=== PATIENT | female | born 1990 | race Two or more races ===

== ENCOUNTER 2023-11-22 14:19 | Emergency (ER) | payer MEDICAID, SELFPAY ==
--- NOTE | ~2023-11-22 | XR_ITS ---
EXAMINATION: XR CHEST CLINICAL INFORMATION: Cough. Fever. COMPARISON: None available. TECHNIQUE: Frontal view of the chest was obtained. FINDINGS: Heart size is normal. No consolidation. Pleural spaces are clear. No pneumothorax. No acute osseous abnormality. There are spinal stabilization rods overlying the thoracic spine. XR/XR chest 1V IMPRESSION: No acute cardiopulmonary disease.
[2023-11-22 14:29] VITALS: BP 118/68; PULSE 108; O2SAT 94
[2023-11-22 14:39] VITALS: BP 117/73; PULSE 98; RESP 18; TEMP 36.3; O2SAT 96; BMI 41.3
--- NOTE | 2023-11-22 15:09 | ED_ITS ---
HPI - URI/Sore Throat General Chief Complaint: Upper Respiratory Symptoms Stated Complaint: CHEST TIGHTNESS, L ARM TINGLING, DIZZINESS Time Seen by Provider: 11/22/23 14:38 Source: patient Mode of arrival: EMS Limitations: other (poor historian) History of Present Illness ED Provider: ANTONIA JIN Narrative: 33 yo female with PMH of bipolar, schizoaffective, asthma, bronchitis, pneumonia who has been at [facility] for 3 weeks for SI attempt notes for the past week the patient has had cough, urinary frequency and kidney pain, her left arm tingles and hurts because when she last had lab work weeks ago the woman did it wrong. MD elicited complaint: cough, rhinorrhea and other (body aches) Pertinent past history: pneumonia Onset (ago): week(s) (1) Consistency: constant Severity: moderate Description of mucous: clear Able to tolerate fluids by mouth: Yes Exacerbating factors: other (cough) Relieving factors: nothing Context: sick contacts Associated symptoms: chills, rhinorrhea, nasal congestion, cough, nausea and other (left arm tingling for weeks at the hand reportedly after a blood draw) Treatments prior to arrival: acetaminophen Related Data Allergies Allergy/AdvReac Type Severity Reaction Status Date / Time No Known Allergies Allergy Verified 11/22/23 14:43 Review of Systems Review of Systems: Constitutional : positive Fever, positive Chills, positive fatigue, positive Malaise ENT/Mouth : positive sore throat, positive runny nose Eyes: No Discharge, no change in vision Cardiovascular : No Chest Pain, No SOB Respiratory : pos Cough, No Sputum Gastrointestinal : pos Nausea, No Vomiting, No Diarrhea Genitourinary : pos Dysuria, No Urinary Frequency Musculoskeletal : positive Myalgia, pos back pain Skin : No rash, no skin lesions Neuro : No Headache, no weakness, pos parasthesias All other systems reviewed and are negative [facility] Past Medical History Attestation statement: The following information was validated with the patient. Source: old records reviewed Medical History Asthma Bipolar 1 disorder Schizoaffective disorder Social History Social History (Updated 11/22/23 @ 15:25 by Candie Hernandez DO) Patient Tobacco Use Status: Current everyday Tobacco user Physical Exam Vital Signs: Vital Signs: Last Vital Signs Temp 97.3 F 11/22/23 14:39 Pulse 98 11/22/23 14:39 Resp 18 11/22/23 14:39 BP 117/73 11/22/23 14:39 Pulse Ox 96 11/22/23 14:39 O2 Del Method Room Air 11/22/23 14:39 BMI result Body Mass Index 41.3 Appearance: Alert. Oriented X3. No acute distress. intermittent forceful coughing on exam but no sputum no vomiting Eyes: Pupils equal, round and reactive to light. ENT: Pharynx normal. Neck: Normal inspection. Neck supple. CVS: Normal heart rate and rhythm. Pulses normal. Respiratory: No respiratory distress. Breath sounds normal. Abdomen: Soft and nontender. Skin: Skin warm and dry. Normal skin color. Normal skin turgor. Extremities: No lower extremity edema. No calf ttp Neuro: Oriented X 3. No motor deficit. No sensory deficit. normal movement of L hand SILT intact 2+ radial pulse Course Course Course Narrative: called and message left at 326pm for Aimee Faustin who is listed as guardian Reevaluation(s) Reevaluation #1: signed out to Dr. Mendiola pending workup Medical Decision Making Medical Decision Making MDM Narrative: 33 yo female with PMH of bipolar, schizoaffective, asthma, bronchitis, pneumonia here with URI symptoms, dysuria and back pain at this time she is not the best historian will obtain basic labs, CXR, viral panel, strep swab - oral motrin ordered. She has no hypoxia or resp distress. EKG ordered but no pain other than with cough low susp for VTE or ACS. She has movement in L hand and is NV intact doubt stroke or neurological issue Differential Diagnosis Differential Diagnoses: The differential diagnosis associated with the presentation includes viral syndrome, pneumonia, bronchitis, UTI, dehydration Admission/Observation Consideration of admission/observation: Escalation of care including admission/observation considered Lab Data [facility] Lab Attestation statement: I reviewed the patient's lab results. Independent Interpretation I performed an independent interpretation of an: Plain X-Ray (normal ) Radiology Impression Discussion of test interpretation with radiology: I have reviewed the radiologist's reading. Independent Historian Clinical information obtained from an independent historian. History obtained from or confirmed by: EMS External Record Review External record reviewed: Outpatient record Discharge Plan Discharge Clinical Impression: Upper respiratory infection Qualifiers: URI type: unspecified URI Qualified Code(s): J06.9 - Acute upper respiratory infection, unspecified Patient Disposition: Still a Patient Print Language: Russian
--- NOTE | 2023-11-22 15:32 | ECG_ITS ---
Test Reason : PAIN Blood Pressure : / mmHG Vent. Rate : 113 BPM Atrial Rate : 113 BPM P-R Int : 116 ms QRS Dur : 092 ms QT Int : 362 ms P-R-T Axes : 033 000 -04 degrees QTc Int : 496 ms Sinus tachycardia Incomplete right bundle branch block Nonspecific T wave abnormality Abnormal ECG No previous ECGs available Referred By: Candie Hernandez Electronically Signed By:Kennedy Samuels
[2023-11-22] MEDS: Ibuprofen 400 MG TABLET PO (16:12)
[2023-11-22] MEDS: Ondansetron ODT 4 MG TAB.RAPDIS TRANSLINGU (16:13)
[2023-11-22 17:10] LABS: MANUAL DIFF FLAG NO
[2023-11-22 17:21] LABS: IDNOW Serial# 08D9AD1C; Strep A Nucleic Acid Negative (Negative)
[2023-11-22 17:31] LABS: Alanine Aminotransferase 10 U/L (0-31); Albumin Level 3.9 g/dL (3.5-5.0); Alkaline Phosphatase 62 U/L (39-117); Anion Gap 14 (12-20); Aspartate Amino Transferase 15 U/L (5-31); Bilirubin Direct 0.1 mg/dL (0.0-0.5); Bilirubin Total 0.3 mg/dL (0.0-1.0); Blood Urea Nitrogen 9 mg/dL (9-16); Calcium 9.8 mg/dL (8.4-10.2); Carbon Dioxide 26 mmol/L (22-29); Chloride 99 mmol/L (96-108); Creatinine Clr Calc Pharmacy 112.5; Estimated Glomerular Filt Rate > 60; Glucose Random 102 mg/dL (60-115); Magnesium 1.6 mg/dL (1.6-2.6); Potassium 4.5 mmol/L (3.3-5.1); Sodium 134 mmol/L (135-145); Total Protein 7.3 g/dL (6.5-8.0)
[2023-11-22 17:33] LABS: Basophils Percent Auto 0.2 % (0-2); Hematocrit 40.6 % (37.0-47.0); Hemoglobin 12.8 g/dl (12.0-16.0); Lymphocytes Absolute Auto 1.4 X10*3/uL (1.2-4.9); Lymphocytes Percent Auto 13.8 % (20-40); Mean Corpuscular HGB Conc 31.5 g/dl (31.0-35.0); Mean Corpuscular Hemoglobin 28.3 pg (27.0-33.0); Mean Corpuscular Volume 89.6 fL (80.0-98.0); Mean Platelet Volume 11.2 fL (9.4-12.3); Monocytes Absolute Auto 0.8 X10*3/uL (0.1-1.2); Monocytes Percent Auto 8.1 % (2-11); NRBC Pct Auto 0.4 /100WBC (0.0-0.2); Neutrophils Absolute Auto 7.7 x10*3/uL (2.0-8.3); Neutrophils Percent Auto 76.9 % (45-73); Platelet Count 153 X10*3/uL (160-400); Red Blood Count 4.53 X10*6/uL (4.20-5.50); Red Cell Distribution Width 13.9 % (11.0-16.0)
[2023-11-22 17:35] LABS: Appearance Urine Clear; Color Urine Yellow; Glucose Urine UA Negative (Negative); Leukocyte Esterase Urine Negative (Negative); Nitrite Urine Negative (Negative); PH 7.5 (5.0-9.0); Specific Gravity - Urine <= 1.005 (1.005-1.025); UMIC TRIGGER UACC YES; Urine Blood Small (1+) (Negative); Urine Ketones Negative (Negative); Urine Protein Negative (Neg-Trace)
[2023-11-22 17:52] LABS: Influenza A PCR NEGATIVE (Negative); Influenza B PCR NEGATIVE (Negative); Resp Syncy Virus RNA Qual PCR NEGATIVE (Negative); SARS COV2 PCR INHOUSE POSITIVE (Negative)
[2023-11-22 17:56] LABS: Bacteria Urine None Seen (None Seen); Hyaline Casts Urine 0-2 /LPF (0-2); Squamous Epithelial Cell Urine 0-2 /HPF (0-2); WBC Urine 0-5 /HPF (0-5)
--- NOTE | 2023-11-22 18:33 | MHC.EDTECH ---
pt changed over and placed into room 2, belongings list was done and pt was given food and blankets. Pt did not need to change into hospital gown as she was already dressed in one
--- NOTE | 2023-11-22 19:01 | PC.NURSE ---
patient appears to remain at rest at present respirations are even and unlabored patient appears in no distress.
--- NOTE | 2023-11-22 20:53 | PC.NURSE ---
called house father number and [address] [place] [address] phone number [phone] to attempt to return patient, no answer.
== END 2023-11-22 23:42 | disposition other institution (70) ==
PROVIDERS: Emergency Medicine; Emergency Provider Emergency Medicine
DX: U07.1 COVID-19 (principal); J06.9 Acute upper respiratory infection, unspecified; R35.0 Frequency of micturition; F25.0 Schizoaffective disorder, bipolar type; F17.210 Nicotine dependence, cigarettes, uncomplicated; J45.909 Unspecified asthma, uncomplicated
CPT/HCPCS: 0241U; 71045; 80048; 80076; 81001; 83735; 85025; 87651; 93005; 99283; 99284

== ENCOUNTER → 2023-11-22 15:32 | Outpatient (BNV) | payer MEDICAID, SELFPAY | PROVIDERS: Emergency Provider Emergency Medicine; Visit Provider Internal Medicine Cardiovascular Disease | DX: R94.31 Abnormal electrocardiogram [ECG] [EKG] (principal) | CPT/HCPCS: 93010 ==

== ENCOUNTER 2023-11-24 09:35 | Inpatient (IN) | payer OTHER, SELFPAY ==
[2023-11-24] VITALS (8 sets, daily range): BP systolic 100–112; BP diastolic 50–68; PULSE 73–102; RESP 17–22; TEMP 36.5–36.6; O2SAT 89–99; BMI 40.8
--- NOTE | ~2023-11-24 | XR_ITS ---
EXAMINATION: XR CHEST CLINICAL INFORMATION: Shortness of breath COMPARISON: 11/22/2023 TECHNIQUE: Frontal view of the chest was obtained. FINDINGS: Lungs are clear cardiomediastinal silhouette is normal. [place] dhruv seen in the thoracic and lumbar spine. XR/XR chest 1V IMPRESSION: No active cardiopulmonary disease
--- NOTE | 2023-11-24 09:52 | ED.GENADULT ---
HPI - General Adult General Chief complaint: General Medical Stated complaint: +COVID FROM [facility], UNABLE TO OFFER O2 PER EMS Time Seen by Provider: 11/24/23 09:47 History of Present Illness HPI narrative: Patient is 33 years old has a history of psychiatric illness. Was at [facility]. Tested positive for COVID 2 days ago. Presents today with having increasing coughing generalized malaise weakness. Patient's oxygenation dropped to the 80s. Also had a low blood pressure reading of 64/49. EMS was called patient was sent to the ED positive coughing upper respiratory symptoms generalized malaise. Positive history of bipolar. Positive history of schizoaffective disorder Related Data Previous Rx's ?Medication ?Instructions ?Recorded acetaminophen 500 mg tablet 500 mg PO Q6H PRN fever or pain 11/22/23 #14 tabs ibuprofen 600 mg tablet 600 mg PO TID PRN fever or pain 11/22/23 #14 tabs Allergies Allergy/AdvReac Type Severity Reaction Status Date / Time No Known Allergies Allergy Verified 11/24/23 09:45 Review of Systems Review of Systems: Positive coughing congestion upper respiratory symptoms positive generalized malaise Yes all other systems are reviewed and are negative [facility] Past Medical History Attestation statement: The following information was validated with the patient. Medical History Asthma Bipolar 1 disorder Schizoaffective disorder Social History Social History Patient Tobacco Use Status: Current everyday Tobacco user Advance Directives: No Do you have a plan to hurt others: No Plan Physical Exam ED Vital Signs: Vital Signs - 24 hr 11/24/23 09:42 11/24/23 09:52 11/24/23 11:40 Temperature 97.9 F 97.9 F Pulse Rate 89 90 82 Respiratory Rate 20 22 H 17 Blood Pressure 100/50 L 100/50 L 104/62 Pulse Oximetry 92 94 98 Oxygen Delivery Method Room Air Nasal Cannula Room Air Oxygen Flow Rate 1 11/24/23 12:19 11/24/23 12:24 Temperature Pulse Rate 89 Respiratory Rate 22 H Blood Pressure Pulse Oximetry 95 89 L Oxygen Delivery Method Room Air Oxygen Flow Rate BMI result Body Mass Index 40.8 Appearance: Alert. Oriented X3. No acute distress. Eyes: Pupils equal, round and reactive to light. ENT: Pharynx normal. Neck: Normal inspection. Neck supple. No lymph nodes noted. No crepitus CVS: Normal heart rate and rhythm. Pulses normal. Normal S1 and S2 Respiratory: No respiratory distress. Breath sounds normal. No Wheezing. No rales Abdomen: Soft and nontender. No rigidity. No distention. good BS x4 Skin: Skin warm and dry. Normal skin color. Normal skin turgor. Extremities: No lower extremity edema. Neurovascular intact to all extremities. No Lacerations. No Rash Neuro: Oriented X 3. No motor deficit. No sensory deficit. Moving all extermities. No slurred speech Medications Administered Discontinued Medications Generic Name Dose Route Start Last Admin Trade Name Freq PRN Reason Stop Dose Admin Sodium Chloride 1,000 mls @ 999 mls/hr 11/24/23 10:00 11/24/23 11:38 Ns IV 11/24/23 11:00 Infused .Q1H1M JANEEN Infusion Sodium Chloride 1,000 mls @ 999 mls/hr 11/24/23 10:00 11/24/23 13:03 Ns IV 11/24/23 11:00 Not Given .Q1H1M JANEEN Medical Decision Making Medical Decision Making [facility] Narrative: Patient is 33 years old presents today with having tested positive for COVID 2 days prior. Been having some coughing generalized malaise. Patient's O2 sat desats into the 80s. Has a low blood pressure EMS was called. IV fluid was given. Patient's lactate was 1.2 there is no evidence for severe sepsis. Influenza and RSV are negative COVID is positive. My interpretation patient's chest x-ray was negative for any acute evidence of pneumonia. No pneumothorax. Ambulated patient in the ED after IV fluids. O2 sat dropped into the 80s. A dose of Decadron in started for treatment of COVID. Will admit patient for further evaluation. Differential Diagnosis Differential Diagnoses: The differential diagnosis associated with the presentation includes COVID, pneumonia, COPD, asthma, PE, pneumothorax Admission/Observation Consideration of admission/observation: Escalation of care including admission/observation considered Lab Data [facility] Lab Attestation statement: I reviewed the patient's lab results. 11/24/23 10:18 11/24/23 10:18 Labs: Lab Results 11/24/23 Range/Units 10:18 WBC 8.3 (4.8-10.8) X10*3/uL RBC 4.51 (4.20-5.50) X10*6/uL Hgb 12.8 (12.0-16.0) g/dl Hct 40.5 (37.0-47.0) % MCV 89.8 (80.0-98.0) fL MCH 28.4 (27.0-33.0) pg MCHC 31.6 (31.0-35.0) g/dl RDW 13.9 (11.0-16.0) % Plt Count 165 (160-400) X10*3/uL MPV 10.9 (9.4-12.3) fL Immature Gran % (Auto) 2.1 H (0.0-0.4) % Neut % (Auto) 66.7 (45-73) % Lymph % (Auto) 21.7 (20-40) % [place] % (Auto) 8.7 (2-11) % Eos % (Auto) 0.4 (0-4) % Baso % (Auto) 0.4 (0-2) % Lymph # (Auto) 1.8 (1.2-4.9) X10*3/uL [place] # (Auto) 0.7 (0.1-1.2) X10*3/uL Eos # (Auto) 0.0 (0.0-0.4) X10*3/uL Baso # (Auto) 0.0 (0.0-0.2) X10*3/uL Abs Immat Gran (auto) 0.17 H (0.00-0.03) X10*3/uL Absolute Neuts (auto) 5.5 (2.0-8.3) x10*3/uL Absolute Nucleated RBC 0.000 (0.0-0.012) X10*3/uL Nucleated RBC % (auto) 0.0 (0.0-0.2) /100WBC Sodium 139 (135-145) mmol/L Potassium 4.4 (3.3-5.1) mmol/L Chloride 100 (96-108) mmol/L Carbon Dioxide 29 (22-29) mmol/L Anion Gap 14 (12-20) BUN 14 (9-16) mg/dL Creatinine 0.67 (0.5-1.4) mg/dL Estim Creat Clear Calc 110.2 Estimated GFR > 60 Random Glucose 121 H (60-115) mg/dL Lactic Acid 1.2 (0.5-2.0) mmol/L Calcium 10.0 (8.4-10.2) mg/dL Influenza Type A (PCR) NEGATIVE (Negative) Influenza Type B (PCR) NEGATIVE (Negative) RSV RNA Qual (PCR) NEGATIVE (Negative) SARS-CoV-2 RNA (RT-PCR) POSITIVE A (Negative) Independent Interpretation I performed an independent interpretation of an: Plain X-Ray (Chest x-ray negative for any acute infiltrate) Radiology Impression Discussion of test interpretation with radiology: I have reviewed the radiologist's reading. Independent Historian Clinical information obtained from an independent historian. History obtained from or confirmed by: Spouse External Record Review External record reviewed: Outpatient record Chronic Conditions Patient?s care impacted by: Other (Schizoaffective disorder) Discharge Plan Discharge Clinical Impression: COVID-19 Patient Disposition: Admitted As Inpatient Prescriptions: No Action acetaminophen 500 mg tablet 500 mg PO Q6H PRN (Reason: fever or pain) Qty: 14 0RF ibuprofen 600 mg tablet 600 mg PO TID PRN (Reason: fever or pain) Qty: 14 0RF Print Language: Rwandan
--- NOTE | 2023-11-24 10:07 | ECG_ITS ---
Test Reason : SOB Blood Pressure : / mmHG Vent. Rate : 084 BPM Atrial Rate : 084 BPM P-R Int : 138 ms QRS Dur : 102 ms QT Int : 376 ms P-R-T Axes : 026 004 -07 degrees QTc Int : 444 ms Normal sinus rhythm Incomplete right bundle branch block Nonspecific T wave abnormality Abnormal ECG When compared with ECG of 22-NOV-2023 16:25, No significant change was found Referred By: Charlette Jefferson Electronically Signed By:Kennedy Samuels
[2023-11-24 10:27] LABS: MANUAL DIFF FLAG NO
[2023-11-24 10:31] LABS: Basophils Percent Auto 0.4 % (0-2); Eosinophils Percent Auto 0.4 % (0-4); Hematocrit 40.5 % (37.0-47.0); Hemoglobin 12.8 g/dl (12.0-16.0); Imm Gran Abs Auto 0.17 X10*3/uL (0.00-0.03); Imm Gran Pct Auto 2.1 % (0.0-0.4); Lymphocytes Absolute Auto 1.8 X10*3/uL (1.2-4.9); Lymphocytes Percent Auto 21.7 % (20-40); Mean Corpuscular HGB Conc 31.6 g/dl (31.0-35.0); Mean Corpuscular Hemoglobin 28.4 pg (27.0-33.0); Mean Corpuscular Volume 89.8 fL (80.0-98.0); Mean Platelet Volume 10.9 fL (9.4-12.3); Monocytes Absolute Auto 0.7 X10*3/uL (0.1-1.2); Monocytes Percent Auto 8.7 % (2-11); Neutrophils Absolute Auto 5.5 x10*3/uL (2.0-8.3); Neutrophils Percent Auto 66.7 % (45-73); Platelet Count 165 X10*3/uL (160-400); Red Blood Count 4.51 X10*6/uL (4.20-5.50); Red Cell Distribution Width 13.9 % (11.0-16.0); White Blood Count 8.3 X10*3/uL (4.8-10.8)
[2023-11-24] MEDS: 0.9 % Sodium Chloride 1,000 ML 999 ML IV (10:38)
[2023-11-24 10:41] LABS: Lactic Acid 1.2 mmol/L (0.5-2.0)
[2023-11-24 10:52] LABS: Anion Gap 14 (12-20); Blood Urea Nitrogen 14 mg/dL (9-16); Carbon Dioxide 29 mmol/L (22-29); Chloride 100 mmol/L (96-108); Creatinine Clr Calc Pharmacy 110.2; Estimated Glomerular Filt Rate > 60; Glucose Random 121 mg/dL (60-115); Potassium 4.4 mmol/L (3.3-5.1); Sodium 139 mmol/L (135-145)
[2023-11-24 11:38] LABS: Influenza A PCR NEGATIVE (Negative); Influenza B PCR NEGATIVE (Negative); Resp Syncy Virus RNA Qual PCR NEGATIVE (Negative); SARS COV2 PCR INHOUSE POSITIVE (Negative)
--- NOTE | 2023-11-24 13:16 | PC.NURSE ---
pt oob without assistance for ambulatory pulse oximetry, pt maintained SpO2 of 94-96%. pt was able to ambulate approx 25ft before complaining of dizziness. although pt was dizzy, her Sp02 was maintained. For safety, pt was wheeled back into exam room. upon returning pt to bed, pt desatted to 89% on RA- pt was placed back on supplemental O2 at 1L via NC. MD Jefferson notified, plan is admit pt to medicine service.
--- NOTE | 2023-11-24 13:32 | PM.IMHP ---
History of Present Illness Date of Service: 11/24/23 Attending physician on admission: Howie Easton Chief Complaint: cough, sob, low oxygen This is a 33 year old female with history of schizoaffective disorder, bipolar disorder admitted to [facility] for management of suicidal ideation with a plan and aggressive behavior who was sent to the emergency department with shortness of breath. She was initially evaluated in the emergency department on November 21 for cough and tested positive for COVID-19. At that time chest x-ray was unremarkable and her oxygen saturations were in the mid 90s on room air. She returned back to [facility]. Today her oxygen saturation was noted to drop into the 80s and for that reason she was sent to the emergency department for evaluation. [facility] is unable to accommodate supplemental oxygen at their facility. In the emergency department she was afebrile, workup was unremarkable. Repeat chest x-ray shows no acute changes. Oxygen saturation noted to drop to 89% on room air. Due to hypoxia she will be admitted for further management of respiratory failure. Patient herself is a poor historian and is difficult to get a accurate history from her. Review of Systems Review of Systems: Yes all other systems are reviewed and are negative Constitutional: Constitutional: Denies chills and Denies fever(s) [facility] Medical History (Updated 11/24/23 @ 13:35 by AMANDA Burton) HLD (hyperlipidemia) HTN (hypertension) Asthma Bipolar 1 disorder Schizoaffective disorder Social History Patient Tobacco Use Status: Current everyday Tobacco user Advance Directives: No Do you have a plan to hurt others: No Plan Meds Allergies Allergy/AdvReac Type Severity Reaction Status Date / Time No Known Allergies Allergy Verified 11/24/23 09:45 Active Medications: Current Medications Acetaminophen (Acetaminophen 325 Mg Tablet) 650 mg PO Q6H PRN PRN Reason: Pain, Mild (Pain Scale 1-3), fever or headache Albuterol Sulfate (Albuterol Sulfate (0.083%) 2.5 Mg/3 Ml Vial.Neb) 2.5 mg INHALE Q6H PRN PRN Reason: Shortness of Breath/Wheezing Benzonatate (Benzonatate 100 Mg Capsule) 100 mg PO TID PRN PRN Reason: Cough Calcium Carbonate (Calcium Carbonate 750 Mg Tab.Chew) 750 mg PO Q4H PRN PRN Reason: Heartburn Dexamethasone (Dexamethasone 6 Mg Tablet) 6 mg PO DAILY [facility] Enoxaparin Sodium (Enoxaparin Sodium 40 Mg/0.4 Ml Syringe) 40 mg SUBCUT Q24H [facility] Glucose (Glucose Gel 15 Gm Gel..Gram.) 15 gm PO Q15M PRN; Protocol PRN Reason: per Hypoglycemia Standing Ord. Guaifenesin/Dextromethorphan (Guaifenesin Dm 100/10/5 Ml 5 Ml Syrup) 5 ml PO Q6H PRN PRN Reason: Cough Dextrose (D10) 250 mls @ 750 mls/hr IV Q15M PRN; Protocol PRN Reason: per Hypoglycemia Standing Ord. Insulin Human Lispro (Insulin Lispro 100 Unit/Ml 3 Ml Vial) 0 unit SUBCUT QIDACHS [facility]; Protocol Magnesium Hydroxide (Milk Of Magnesia 30 Ml Oral.Susp) 30 ml PO DAILY PRN PRN Reason: Constipation Melatonin (Melatonin 3 Mg Tablet) 6 mg PO BEDTIME PRN PRN Reason: Insomnia Sodium Chloride (0.9 % Sodium Chloride Flush 3 Ml Syringe) 3 ml IVFLUSH QSHIFT [facility] Physical Exam Vital Signs and Narrative: Vital Signs: Last Vital Signs Temp 97.9 F 11/24/23 09:52 Pulse 89 11/24/23 12:24 Resp 22 H 11/24/23 12:24 BP 104/62 11/24/23 11:40 Pulse Ox 89 L 11/24/23 12:24 O2 Del Method Room Air 11/24/23 12:24 O2 Flow Rate 1 11/24/23 09:52 BMI result Body Mass Index 40.8 Const: General: cooperative, comfortable, no acute distress, alert and awake Nutritional Appearance: obese Orientation/consciousness: patient oriented x3 Resp: Effort & Inspection: normal respiratory effort, able to speak in complete sentences, Actively coughing, no respiratory distress and no use of accessory muscles Cardio: Rate: regular rate GI: Inspection: No distended and Yes obesity Palpation (GI): Soft to palpation and nontender Neuro: General: patient oriented x3 and moves all extremities Results Labs 11/24/23 10:18 11/24/23 10:18 Labs: Laboratory Results - last 24 hr 11/24/23 10:18 MCV 89.8 MCH 28.4 MCHC 31.6 RDW 13.9 Plt Count 165 MPV 10.9 Immature Gran % (Auto) 2.1 H Neut % (Auto) 66.7 Lymph % (Auto) 21.7 [place] % (Auto) 8.7 Eos % (Auto) 0.4 Baso % (Auto) 0.4 Lymph # (Auto) 1.8 [place] # (Auto) 0.7 Eos # (Auto) 0.0 Baso # (Auto) 0.0 Abs Immat Gran (auto) 0.17 H Absolute Neuts (auto) 5.5 Absolute Nucleated RBC 0.000 Nucleated RBC % (auto) 0.0 Anion Gap 14 Estim Creat Clear Calc 110.2 Estimated GFR > 60 Random Glucose 121 H Lactic Acid 1.2 Calcium 10.0 Influenza Type A (PCR) NEGATIVE Influenza Type B (PCR) NEGATIVE RSV RNA Qual (PCR) NEGATIVE SARS-CoV-2 RNA (RT-PCR) POSITIVE A Imaging Radiologist's Impressions: Impressions Chest X-Ray 11/24/23 10:20 IMPRESSION: No active cardiopulmonary disease Assessment and Plan (1) COVID-19: Status: Acute Plan This is a 33 year old female with history of schizoaffective disorder, bipolar disorder admitted to [facility] for management of suicidal ideation with a plan and aggressive behavior who tested positive for covid 19 on 11/21 and was sent to the emergency department with hypoxia Acute respiratory failure secondary to COVID-19 infection Chest x-ray negative Symptoms ongoing for over a week no indication for antiviral therapy Due to hypoxia will be treated with steroids Symptomatic support with breathing treatments and cough suppressants Supplemental oxygen as needed, wean as tolerated Prediabetes hold metformin follow blood sugar Mood From [facility] where she was being treated for suicidal ideation Continue 1:1 for safety will need care team evaluation prior to discharge Continue baseline meds Morbid obesity BMI 40.8 Likely contributing to respiratory symptoms Weight loss encouraged Medication reconciliation is pending at the time of admission. We will continue medication for hypertension, hyperlipidemia etcetera when med rec has been completed DVT prophylaxis-Lovenox Code status-full code Quality Stroke Does the patient have a stroke diagnosis?: No VTE Prior VTE?: No VTE Risk Level:: Medical - moderate - high VTE Device Contraindication: N/A - Device Ordered VTE Drug Contraindication: N/A - Med Ordered
[2023-11-24] MEDS: dexAMETHasone sod phosphate 10 MG/ML VIAL IVPUSH (13:55)
[2023-11-24] MEDS: Enoxaparin Sodium 40 MG/0.4 ML SYRINGE SUBCUT (13:55)
--- NOTE | 2023-11-24 13:57 | PC.NURSE ---
pt noted to be snoring loudly- pt SpO2 varying from 87-90% on 1L via NC- upon waking pt 99% on 1L via NC
--- NOTE | 2023-11-24 14:33 | PHA.MEDREC ---
Pharmacy Consult ? Medication Reconciliation Pharmacy has completed the medication reconciliation. Faxed med list.
[2023-11-24] MEDS: 0.9 % Sodium Chloride Flush 3 ML SYRINGE IVFLUSH (18:24)
[2023-11-24 18:42] LABS: Glucose, Whole Blood 175 mg/dL (60-115)
[2023-11-24 21:09] LABS: Glucose, Whole Blood 154 mg/dL (60-115)
[2023-11-24] MEDS: HaloperidoL 1 MG TABLET 4 MG PO (21:43)
[2023-11-24] MEDS: Atorvastatin Calcium 20 MG TABLET PO (21:44)
[2023-11-24] MEDS: Divalproex Sodium 500 MG TABLET.DR PO (21:44)
[2023-11-24] MEDS: Prazosin HCL 1 MG CAPSULE PO (21:44)
[2023-11-24] MEDS: traZODone HCL 50 MG TABLET PO (21:46)
[2023-11-24] MEDS: Insulin Lispro 100 UNIT/ML 3 ML VIAL SUBCUT (21:46)
[2023-11-25] VITALS: BP 114/70; PULSE 90; RESP 24; TEMP 36.8; O2SAT 95
[2023-11-25] MEDS: 0.9 % Sodium Chloride Flush 3 ML SYRINGE IVFLUSH ×2 (00:27→10:41)
[2023-11-25] MEDS: Benzonatate 100 MG CAPSULE PO (02:24)
--- NOTE | 2023-11-25 02:26 | PC.NURSE ---
pt started coughing, and couldn't stop, sat pt up on the stretcher, called RT for brething treatment and gave pt a tessolon pearle
[2023-11-25 02:36] VITALS: PULSE 74; RESP 16; O2SAT 93
[2023-11-25] MEDS: Albuterol Sulfate (0.083%) 2.5 MG/3 ML VIAL.NEB INHALE (02:36)
[2023-11-25 04:00] VITALS: BP 98/71; PULSE 86; RESP 28; TEMP 36.8; O2SAT 97
[2023-11-25 07:14] VITALS: BP 107/63; PULSE 63; RESP 18; TEMP 36.8; O2SAT 100
[2023-11-25 07:16] LABS: Glucose, Whole Blood 106 mg/dL (60-115)
[2023-11-25 10:30] VITALS: BP 119/79; PULSE 64; RESP 18; TEMP 36; O2SAT 96
[2023-11-25] MEDS: dexAMETHasone 6 MG TABLET PO (10:40)
[2023-11-25] MEDS: Sertraline HCL 100 MG TABLET PO (10:41)
[2023-11-25] MEDS: Divalproex Sodium 500 MG TABLET.DR PO (10:41)
[2023-11-25] MEDS: Ferrous Sulfate 324 MG TABLET.DR PO (10:41)
--- NOTE | 2023-11-25 11:12 | P.PNIM_ITS ---
Subjective Subjective Date of Service: 11/25/23 Interval History: Seen and examined this morning Follow-up for COVID-19 Reports ongoing coughing. Poor historian Review of Systems Review of Systems: Yes all other systems are reviewed and are negative Constitutional Constitutional: Denies chills and Denies fever(s) Cardiovascular Cardiovascular: Denies chest pain and Denies palpitations Respiratory Respiratory: Reports cough Gastrointestinal Gastrointestinal: Denies abdominal pain Endocrine Endocrine: Denies palpitations Physical Exam 2 Vital Signs: Vital Signs: Last Vital Signs Temp 96.8 F 11/25/23 10:30 Pulse 64 11/25/23 10:30 Resp 18 11/25/23 10:30 BP 119/79 11/25/23 10:30 Pulse Ox 96 11/25/23 10:30 O2 Del Method Room Air 11/25/23 10:30 O2 Flow Rate 1 11/25/23 04:00 BMI result Body Mass Index 40.8 Const: General: cooperative, comfortable, no acute distress, alert and awake Nutritional Appearance: obese Orientation/consciousness: patient oriented x3 Resp: Effort & Inspection: normal respiratory effort, able to speak in complete sentences, Actively coughing, no respiratory distress and no use of accessory muscles Cardio: Rate: regular rate GI: Inspection: No distended and Yes obesity Palpation (GI): Soft to palpation and nontender Neuro: General: patient oriented x3 and moves all extremities Objective Data Active Medications Acetaminophen (Acetaminophen 325 Mg Tablet) 650 mg PO Q6H PRN PRN Reason: Pain, Mild (Pain Scale 1-3), fever or headache Albuterol Sulfate (Albuterol Sulfate (0.083%) 2.5 Mg/3 Ml Vial.Neb) 2.5 mg INHALE Q6H PRN PRN Reason: Shortness of Breath/Wheezing Last Admin: 11/25/23 02:36 Dose: 2.5 mg Documented By: DESTINEE Atorvastatin Calcium (Atorvastatin Calcium 20 Mg Tablet) 20 mg PO BEDTIME JANEEN Last Admin: 11/24/23 21:44 Dose: 20 mg Documented By: JO Benzonatate (Benzonatate 100 Mg Capsule) 100 mg PO TID PRN PRN Reason: Cough Last Admin: 11/25/23 02:24 Dose: 100 mg Documented By: JO Calcium Carbonate (Calcium Carbonate 750 Mg Tab.Chew) 750 mg PO Q4H PRN PRN Reason: Heartburn Clonazepam (Clonazepam 0.5 Mg Tablet) 0.5 mg PO DAILY PRN PRN Reason: Anxiety Dexamethasone (Dexamethasone 6 Mg Tablet) 6 mg PO DAILY [facility] Last Admin: 11/25/23 10:40 Dose: 6 mg Documented By: SELAM Divalproex Sodium (Divalproex Sodium 500 Mg Tablet.) 500 mg PO BID [facility] Last Admin: 11/25/23 10:41 Dose: 500 mg Documented By: SELAM Docusate Sodium (Docusate Sodium 100 Mg Capsule) 100 mg PO BID PRN PRN Reason: Constipation Enoxaparin Sodium (Enoxaparin Sodium 40 Mg/0.4 Ml Syringe) 40 mg SUBCUT Q24H [facility] Last Admin: 11/24/23 13:55 Dose: 40 mg Documented By: ALVIN Ferrous Sulfate (Ferrous Sulfate 324 Mg Tablet.) 324 mg PO DAILY [facility] Last Admin: 11/25/23 10:41 Dose: 324 mg Documented By: SELAM Glucose (Glucose Gel 15 Gm Gel..Gram.) 15 gm PO Q15M PRN; Protocol PRN Reason: per Hypoglycemia Standing Ord. Guaifenesin/Dextromethorphan (Guaifenesin Dm 100/10/5 Ml 5 Ml Syrup) 5 ml PO Q6H PRN PRN Reason: Cough Haloperidol (Haloperidol 1 Mg Tablet) 4 mg PO BEDTIME [facility] Last Admin: 11/24/23 21:43 Dose: 4 mg Documented By: JO Hydroxyzine HCl (Hydroxyzine Hcl 50 Mg Tablet) 50 mg PO TID PRN PRN Reason: Anxiety Dextrose (D10) 250 mls @ 750 mls/hr IV Q15M PRN; Protocol PRN Reason: per Hypoglycemia Standing Ord. Insulin Human Lispro (Insulin Lispro 100 Unit/Ml 3 Ml Vial) 0 unit SUBCUT QIDACHS [facility]; Protocol Last Admin: 11/25/23 08:02 Dose: Not Given Documented By: GAVIOTA Non-Admin Reason: No Insulin Coverage Magnesium Hydroxide (Milk Of Magnesia 30 Ml Oral.Susp) 30 ml PO DAILY PRN PRN Reason: Constipation Melatonin (Melatonin 3 Mg Tablet) 6 mg PO BEDTIME PRN PRN Reason: Insomnia Melatonin (Melatonin 3 Mg Tablet) 6 mg PO BEDTIME PRN PRN Reason: Insomnia Nicotine Polacrilex (Nicotine Polacrilex 2 Mg Gum) 2 mg BUCCAL Q2H PRN PRN Reason: Nicotine Cravings Prazosin HCl (Prazosin Hcl 1 Mg Capsule) 1 mg PO BEDTIME [facility]; Protocol Last Admin: 11/24/23 21:44 Dose: 1 mg Documented By: JO Sertraline HCl (Sertraline Hcl 100 Mg Tablet) 100 mg PO DAILY [facility] Last Admin: 11/25/23 10:41 Dose: 100 mg Documented By: SELAM Sodium Chloride (0.9 % Sodium Chloride Flush 3 Ml Syringe) 3 ml IVFLUSH QSHIFT [facility] Last Admin: 11/25/23 10:41 Dose: 3 ml Documented By: SELAM Trazodone HCl (Trazodone Hcl 50 Mg Tablet) 50 mg PO BEDTIME [facility] Last Admin: 11/24/23 21:46 Dose: 50 mg Documented By: JO Labs 11/24/23 10:18 11/24/23 10:18 Labs: Laboratory Results - last 24 hr 11/24/23 11/24/23 11/24/23 10:18 18:38 21:04 POC Glucose 175 H 154 H Influenza Type A (PCR) NEGATIVE Influenza Type B (PCR) NEGATIVE RSV RNA Qual (PCR) NEGATIVE SARS-CoV-2 RNA (RT-PCR) POSITIVE A 11/25/23 07:12 POC Glucose 106 Influenza Type A (PCR) Influenza Type B (PCR) RSV RNA Qual (PCR) SARS-CoV-2 RNA (RT-PCR) Assessment and Plan (1) COVID-19: Status: Acute Plan This is a 33 year old female with history of schizoaffective disorder, bipolar disorder admitted to [facility] for management of suicidal ideation with a plan and aggressive behavior who tested positive for covid 19 on 11/21 and was sent to the emergency department with hypoxia Acute respiratory failure secondary to COVID-19 infection Chest x-ray negative Symptoms ongoing for over a week no indication for antiviral therapy Due to hypoxia will be treated with steroids Symptomatic support with breathing treatments and cough suppressants Supplemental oxygen as needed, wean as tolerated Prediabetes hold metformin follow blood sugar, diabetic diet Mood From [facility] where she was being treated for suicidal ideation Continue 1:1 for safety will need care team evaluation prior to discharge Continue baseline meds Morbid obesity BMI 40.8 Likely contributing to respiratory symptoms Weight loss encouraged HLD Continue statin Tobacco dependence Continue nicotine replacement therapy Hypertension Hold lisinopril for borderline blood pressure, resume as tolerated DVT prophylaxis-Lovenox Code status-full code Quality Stroke Does the patient have a stroke diagnosis?: No VTE Prior VTE?: No VTE Risk Level:: Medical - moderate - high VTE Device Contraindication: N/A - Device Ordered VTE Drug Contraindication: N/A - Med Ordered
[2023-11-25 11:30] VITALS: BP 102/75; PULSE 60; RESP 20; TEMP 36.1; O2SAT 96
--- NOTE | 2023-11-25 12:28 | MHC.CARE ---
Pt is medically cleared and T/W spoke with Oksana, nurse at [facility] who stated they help Pt's bed and she is able to return today for treatment. Oksana had additional medical questions and was transferred to the medical floor. Per Sully Brar, Oksana from [facility] spoke with nursing on the [facility] med floor and stated Pt was able to retun to [facility]. Pt will be discharged to continue mental health treatment at [facility].
--- NOTE | 2023-11-25 12:33 | MHC.CARE ---
Pt was referred to the CARE team today as she was medically cleared. T/W met with Pt in room 478 on the medical floor. Pt was lying in bed dressed in hospital attire. Precautions were in place secondary to Pt having COVIC. Hygiene was unremarkable. Eye contact was intermittent. Speech was mumbled and fast. Thought process was slightly disorganized. Pt presents as much younger and may have a cognitive impairment. Pt was unable to provide the phone numbers of her mother or legal guardian and the phone numbers in her chart for the mother were inaccurate. Pt advocated to return home with her mother. She stated she was residing in a senior care in [place] however was kicked out for fighting. Pt was admitted to [facility] secondary to SI with a plan and aggressive behavior. She was transported to [facility] on 11/21 and was diagnosed with COVID, medically cleared and returned to [facility]. Pt was then transferred back to [facility] in need of oxygen. Pt is off oxygen and medically cleared at this time. Pt denies SI, HI, and A/V/H however is minimizing mental health concerns and a poor historian. Pt is unable to answer many of the assessment questions appropriately or provide historical information in regard to her mental health. Pt did not complete treatment at [facility] and should return for additional mental health treatment and discharge planning. T/W spoke with Oksana, a nurse on the adult psychiatric unit at [facility] who stated that they held Pt's bed and she is able to return today to resume treatment. She had additional medical questions so she was transferred to the medical floor. AMANDA Ochoa reported Oksana from [facility] spoke with nursing staff on the [facility] med floor soon after and reported Pt is able to return today. Pt is cleared by CARE team and the recommendation is to return to [facility]. Pt will discharge today.
--- NOTE | 2023-11-25 12:35 | PM.DS ---
DS: Providers Provider Date of Service: 11/25/23 Date of admission: 11/24/23 13:24 Date of discharge: 11/25/23 Primary care physician: Unknown Physician Consults: 11/24/23 13:49 Consult for Sitter Routine Reason for consultation: SI from [facility] Has provider been notified: No 11/25/23 11:20 Consult to Care Team Routine Comment: Reason for consultation: from [facility] LOC; medically clear. COVID-19 positive Attending physician on discharge: Howie Easton Discharging clinician: Sully Brar DS: Diagnosis Discharge Diagnosis (1) COVID-19: Status: Acute DS: Summary Hospital Course Hospital Course: From H&P on the day of admission This is a 33 year old female with history of schizoaffective disorder, bipolar disorder admitted to [facility] for management of suicidal ideation with a plan and aggressive behavior who was sent to the emergency department with shortness of breath. She was initially evaluated in the emergency department on November 21 for cough and tested positive for COVID-19. At that time chest x-ray was unremarkable and her oxygen saturations were in the mid 90s on room air. She returned back to [facility]. Today her oxygen saturation was noted to drop into the 80s and for that reason she was sent to the emergency department for evaluation. [facility] is unable to accommodate supplemental oxygen at their facility. In the emergency department she was afebrile, workup was unremarkable. Repeat chest x-ray shows no acute changes. Oxygen saturation noted to drop to 89% on room air. Due to hypoxia she will be admitted for further management of respiratory failure. Patient herself is a poor historian and is difficult to get a accurate history from her. Acute respiratory failure secondary to COVID-19 infection Chest x-ray negative for pneumonia. Symptoms ongoing for over a week, no indication for antiviral therapy. Due to hypoxia was started on oral steroids. She remained on small amount of supplemental oxygen overnight and this morning she was able to be weaned down to room air. She has persistent cough which in viral illness may last up to 4-6 weeks. Can treat symptomatically with as needed Tessalon, as needed albuterol for shortness of breath. Currently patient denies any shortness breath at this time. She was evaluated by care team and deemed to be a candidate to return to [facility] to continue her inpatient psychiatric care. Her morbid obesity and body habitus were likely contributing to hypoxia. No changes were made to her baseline medications. Time Attestation Discharge Coordination Time (in mins): 32 Quality: Safe Use of Opioids Does Pt have an Active Cancer Diagnosis on the Problem List?: No Quality: Stroke Does the patient have a stroke diagnosis?: No Physical Exam Vital Signs: Vital Signs: Last Vital Signs Temp 96.9 F 11/25/23 11:30 Pulse 60 11/25/23 11:30 Resp 20 11/25/23 11:30 BP 102/75 11/25/23 11:30 Pulse Ox 96 11/25/23 11:30 O2 Del Method Room Air 11/25/23 11:30 O2 Flow Rate 1 11/25/23 04:00 BMI result Body Mass Index 40.8 Const: General: cooperative, comfortable, no acute distress, alert and awake Nutritional Appearance: obese Orientation/consciousness: patient oriented x3 Resp: Effort & Inspection: normal respiratory effort, able to speak in complete sentences, Actively coughing, no respiratory distress and no use of accessory muscles Auscultation: clear to auscultation bilaterally Cardio: Rate: regular rate GI: Inspection: No distended and Yes obesity Palpation (GI): Soft to palpation and nontender Neuro: General: patient oriented x3 and moves all extremities DS: Data Data Completed and Pending Labs on day of discharge: Laboratory Results - last 24 hr 11/24/23 11/24/23 11/25/23 18:38 21:04 07:12 POC Glucose 175 H 154 H 106 Preliminary micro results at discharge 11/24/23 10:18 Blood Culture - Preliminary Blood - Venous No growth after 24 hours. Discharge Plan Discharge Patient Disposition: Xfer Psychiatric Hosp Discharge Diagnosis: Acute respiratory failure with hypoxia due to COVID-19 Referrals: Physician,Unknown J [Primary Care Provider] - 1 Week Discharge Medications: New benzonatate 100 mg Capsule 100 mg PO TID PRN (Reason: Cough) Qty: 15 0RF prednisone 20 mg tablet 40 mg PO DAILY 4 Days Qty: 8 0RF albuterol sulfate [Ventolin HFA] 90 mcg/actuation HFA aerosol inhaler 2 puff inhalation Q4-6H PRN (Reason: shortness of breath or wheezing) Qty: 6.7 0RF Continued metformin 500 mg Tablet 500 mg PO DAILY acetaminophen [Tylenol] 325 mg Tablet 650 mg PO Q4H PRN (Reason: Pain) atorvastatin 20 mg Tablet 20 mg PO BEDTIME trazodone 50 mg Tablet 50 mg PO BEDTIME nicotine (polacrilex) 2 mg Gum 2 mg BUCCAL Q2H PRN (Reason: Nicotine Cravings) prazosin 1 mg Capsule 1 mg PO BEDTIME clonazepam 0.5 mg Tablet 0.5 mg PO DAILY PRN (Reason: Anxiety) sertraline 100 mg Tablet 100 mg PO DAILY hydroxyzine pamoate 50 mg Capsule 50 mg PO TID PRN (Reason: Anxiety) melatonin 3 mg Tablet 6 mg PO BEDTIME PRN (Reason: Insomnia) divalproex 500 mg Tablet,Delayed Release (Dr/Ec) 500 mg PO BID docusate sodium 100 mg Capsule 100 mg PO BID PRN (Reason: Constipation) lisinopril 5 mg Tablet 2.5 mg PO DAILY ferrous sulfate 325 mg (65 mg iron) Tablet,Delayed Release (Dr/Ec) 325 mg PO DAILY haloperidol 2 mg Tablet 4 mg PO BEDTIME benzocaine-menthol 15-3.6 mg Lozenge 1 kathya MUCOUS MEMBRANE Q2H PRN (Reason: Sore Throat) Discharge Orders: Discharge Order (Routine); Ordered 11/25/23 Ordered By: Sully Brar Activity on Discharge: As tolerated Stand Alone Forms: Patient Portal Discharge page Print Language: Gabonese Care Plan Goals: See below Health Concerns: Acute respiratory failure due to COVID-19 Plan of Treatment: Brief hypoxia in the setting of COVID-19 and likely body habitus. Now back on room air Complete course of prednisone as prescribed. P.r.n. Ventolin for shortness of breath, p.r.n. Tessalon for cough Cough could persist for up to 4-6 weeks Assessment: See discharge summary
--- NOTE | 2023-11-25 15:17 | MHC.CM.PN ---
PT UNABLE TO PROVIDE RELIABLE HISTORY SHE HAS A LEGAL GUARDIANSHIP ON FILE WITH [employer]KE KENNY LISTED CM CALLED MR KENNY [phone] REQUESTING A RETURN CALL TO OBTAIN MORE INFORMATION AND INFORMING HIM PT WOULD BE RETURNING TO [facility] AT [facility] TODAY. PTS MOTHER IS ALSO LISTED A CONTACT, HOWEVER THE NUMBERS LISTED ARE OOS PT WAS SEEN BY CARE TEAM AND WILL DC TO [facility] FOR FURTHER PSYCHIATRIC TREATMENT BLS TRANSPORT VIA [facility] ARRANGED FOR NEXT AVAILABLE
== END 2023-11-25 16:22 | DRG 750 ==
LOC: HO.ED 13:12 → HO.EDOVER 13:31 → HO.IMC 11-25 07:43
PROVIDERS: Admitting Provider Physician Assistant Medical; Emergency Provider Emergency Medicine Emergency Medical Services; Visit Provider Physician Assistant Medical
DX: F25.0 Schizoaffective disorder, bipolar type (principal); J96.01 Acute respiratory failure with hypoxia; U07.1 COVID-19; R73.03 Prediabetes; E78.5 Hyperlipidemia, unspecified; I10 Essential (primary) hypertension; E66.01 Morbid (severe) obesity due to excess calories; F17.200 Nicotine dependence, unspecified, uncomplicated; Z71.6 Tobacco abuse counseling; Z68.41 Body mass index [BMI] 40.0-44.9, adult; Z79.84 Long term (current) use of oral hypoglycemic drugs; Z79.899 Other long term (current) drug therapy
CPT/HCPCS: 0241U; 36415; 71045; 80048; 82947; 83605; 85025; 87040; 93005; 94640; 99285; J1100; J1650; J8540; S9485

== ENCOUNTER → 2023-11-24 10:07 | Outpatient (BNV) | payer MEDICAID, SELFPAY | PROVIDERS: Admitting Provider Physician Assistant Medical; Emergency Provider Emergency Medicine Emergency Medical Services; Visit Provider Internal Medicine Cardiovascular Disease | DX: R94.31 Abnormal electrocardiogram [ECG] [EKG] (principal) | CPT/HCPCS: 93010 ==

== ENCOUNTER → 2023-11-24 13:24 | Outpatient (BNV) | payer MEDICAID, SELFPAY | PROVIDERS: Admitting Provider Physician Assistant Medical; Emergency Provider Emergency Medicine Emergency Medical Services; Visit Provider Physician Assistant Medical | DX: U07.1 COVID-19 (principal) | CPT/HCPCS: 99223; 99239 ==